=== PATIENT | female | born 1995 | race Two or more races ===

== ENCOUNTER 2020-05-22 11:53 | Inpatient (IN) | payer SELFPAY ==
[2020-05-22] MEDS ORDERED: Lactated Ringers 1,000 ML IV SCH (12:45)
--- NOTE | 2020-05-22 13:07 | US ---
Limited obstetrical ultrasound: Multiple real-time images were obtained. Technologist's note: Very inaccurate head measurements presentation: Cephalic Placenta: Anterior with inferior edge placenta not seen. Amniotic fluid: No fluid, ruptured membranes Measurements: BPD: 9.16 cm - 37 weeks 1 day (as mentioned above, not optimal measurements) Head circumference: 32.88 cm - 37 weeks 3 days (as mentioned above, not optimal measurements) Abdominal circumference: 32.98 cm - 36 weeks 6 days Femur length: 7.46 cm - 38 weeks 1 day Estimated weight 3168 g (7 lbs. 0 oz.) Heart rate: 117 bpm Impression: 1. Single intrauterine fetus currently cephalic in presentation. Dates as noted above. 2. No amniotic fluid compatible with ruptured membranes. Diagnostic code #2 This report was dictated in MDT
[2020-05-22] MEDS ORDERED: ePHEDrine 50 MG/ML SDV IVPUSH PRN (13:11)
[2020-05-22] MEDS ORDERED: Nalbuphine 10 MG/ML Syringe IVPUSH PRN (13:11)
[2020-05-22] MEDS ORDERED: Sodium Chloride 0.9% 10 ML Syringe FLUSH PRN (13:11)
[2020-05-22] MEDS ORDERED: Bupivacaine/fentaNYL/NS 100 ML Bag EPIDUR PRN (13:11)
[2020-05-22] MEDS ORDERED: diphenhydrAMINE 50 MG/ML SDV IVPUSH PRN (13:11)
[2020-05-22] MEDS ORDERED: fentaNYL 100 MCG/2 ML SDV EPIDUR PRN (13:11)
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
[2020-05-22] MEDS: Lactated Ringers 1,000 ML IV SCH ×2 (13:15→13:58)
[2020-05-22] MEDS ORDERED: Ampicillin 2 GM in Sodium Chloride 0.9% 100 ML IV ONE (13:30)
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
[2020-05-22] MEDS ORDERED: Ampicillin 1 GM in Sodium Chloride 0.9% 100 ML IV SCH (17:30)
[2020-05-22] MEDS ORDERED: Oxytocin/Lactated Ringers 10 UNIT/1,000 ML BAG IV ONE (18:04)
[2020-05-22] MEDS ORDERED: Lidocaine 1% 50 ML MDV ONE (18:33)
[2020-05-22] MEDS ORDERED: Lidocaine 1% 50 ML MDV INJECT STA (18:35)
[2020-05-22] MEDS ORDERED: Oxytocin/Lactated Ringers 10 UNIT/1,000 ML BAG IV SCH ×2 (18:45→19:28)
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
[2020-05-22] MEDS ORDERED: Benzocaine/Menthol 20%-0.5% Spray 56 GM Canister TOP PRN (19:28)
[2020-05-22] MEDS ORDERED: Magnesium Hydroxide 400 MG/5 ML Susp 30 ML Cup PO PRN (19:28)
[2020-05-22] MEDS ORDERED: Docusate Sodium 100 MG Cap PO PRN (19:28)
[2020-05-22] MEDS ORDERED: Hydrocortisone Acetate 25 MG Supp RECTAL PRN (19:28)
[2020-05-22] MEDS: Ibuprofen 600 MG Tab PO PRN (20:52)
[2020-05-22] MEDS: Witch Hazel Medicated Pads 40/Jar TOP PRN (20:52)
[2020-05-22] MEDS ORDERED: Metoclopramide 10 MG Tab PO PRN (23:23)
[2020-05-22] MEDS ORDERED: diphenhydrAMINE 50 MG Cap PO PRN (23:23)
[2020-05-22] MEDS: Acetaminophen 325 MG Tab PO PRN (23:42)
[2020-05-22] MEDS: diphenhydrAMINE 25 MG Cap PO PRN (23:48)
[2020-05-23] MEDS ORDERED: Bupivacaine 0.25% 10 ML SDV ONE
[2020-05-23] MEDS: Witch Hazel Medicated Pads 40/Jar TOP PRN (08:42)
[2020-05-23] MEDS: Prenatal Multivitamin with Calcium/Folic Acid/Iron Tab PO SCH (08:42)
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
[2020-05-23] MEDS: Nicotine 14 MG/24 Hr Patch TRDERM SCH ×2 (13:51→17:02)
[2020-05-23] MEDS ORDERED: Diphtheria,Pertussis(Acell),Tetanus Vaccine 0.5 ML Syringe IM ONE (14:00)
[2020-05-23] MEDS: Ibuprofen 600 MG Tab PO PRN (14:23)
[2020-05-23] MEDS: Acetaminophen 325 MG Tab PO PRN (17:27)
[2020-05-23] MEDS ORDERED: Nicotine 21 MG/24 Hr Patch TRDERM SCH (22:30)
[2020-05-24] MEDS: Ibuprofen 600 MG Tab PO PRN (00:48)
[2020-05-24] MEDS: diphenhydrAMINE 25 MG Cap PO PRN (00:49)
[2020-05-24] MEDS: Witch Hazel Medicated Pads 40/Jar TOP PRN (05:57)
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
--- NOTE | 2020-05-24 11:47 | PCM48HPAN ---
Post Anesthesia Note - EVALUATION WITHIN 48HRS OF ANESTHETIC Vital Signs in Normal Range: Yes Patient Participated in Evaluation: Yes Respiratory Function Stable: Yes Airway Patent: Yes Cardiovascular Function Stable: Yes Hydration Status Stable: Yes Pain Control Satisfactory: Yes Nausea and Vomiting Control Satisfactory: Yes Mental Status Recovered: Yes Vital Signs: Last Vital Signs Temp 98.4 F 05/24/20 08:23 Pulse 92 05/24/20 08:23 Resp 16 05/24/20 08:23 BP 122/86 05/24/20 08:23 Pulse Ox 99 05/24/20 08:23 - COMMENTS/OBSERVATIONS Free Text/Narrative:: no post epidural complications noted. Denies any back discomfort.
[2020-05-24] MEDS: Prenatal Multivitamin with Calcium/Folic Acid/Iron Tab PO SCH (13:09)
== END 2020-05-24 12:00 | disposition home or self-care (01) | DRG 807 ==
LOC: EEVIPCON 11:53 → JD.OBCHECK 11:53 → JD.OB 11:53 → JD.OBCHECK 12:55 → JD.OB 12:55 → OBSVTOIN 18:13 → EEVIPCON 18:13 → JD.OB 18:14
PROVIDERS: ADMIT Obstetrics & Gynecology; ATTEND Obstetrics & Gynecology
PROC: 10E0XZZ Delivery of Products of Conception, External Approach (ICD-10-PCS; principal; 2020-05-22)
PROC: 0KQM0ZZ Repair Perineum Muscle, Open Approach (ICD-10-PCS; 2020-05-22)
PROC: 10907ZC Drainage of Amniotic Fluid, Therapeutic from Products of Conception, Via Natural or Artificial Opening (ICD-10-PCS; 2020-05-22)
PROC: 0UQMXZZ Repair Vulva, External Approach (ICD-10-PCS; 2020-05-22)
PROC: 00HU33Z Insertion of Infusion Device into Spinal Canal, Percutaneous Approach (ICD-10-PCS; 2020-05-22)
PROC: 3E0R3BZ Introduction of Anesthetic Agent into Spinal Canal, Percutaneous Approach (ICD-10-PCS; 2020-05-22)
DX: O99.330 Smoking (tobacco) complicating pregnancy, unspecified trimester (principal); Z37.0 Single live birth; O99.320 Drug use complicating pregnancy, unspecified trimester; O77.0 Labor and delivery complicated by meconium in amniotic fluid; O69.81X0 Labor and delivery complicated by cord around neck, without compression, not applicable or unspecified; O70.1 Second degree perineal laceration during delivery; Z3A.37 37 weeks gestation of pregnancy; O99.334 Smoking (tobacco) complicating childbirth; F17.210 Nicotine dependence, cigarettes, uncomplicated; Z20.828 Contact with and (suspected) exposure to other viral communicable diseases
CPT/HCPCS: 36415; 59025; 59409; 76815; 76815-26; 80306; 81001; 85025; 86592; 86762; 86850; 86900; 86901; 87340; 87653; A9270-GY; G0433; G0480; J0290; J2001; J2590; J3010; J3490; J7050; J7120; U0002